=== PATIENT | male | born 1955 | race Caucasian/White ===

== ENCOUNTER 2024-02-16 12:35 | Outpatient (AMB) | payer BC, SELFPAY ==
[2024-02-16 12:57] VITALS: BMI 34.4
--- NOTE | 2024-02-16 12:57 | HO.SPINEOV ---
Vital Signs 02/16/24 12:57 Height 5 ft 10 in Weight 240 lb BMI 34.4 Intake Visit Reasons: low back pain, leg weakness and numbness Intake Note: Mr. Mae is here today c/o back pain with leg numbness and weakness. 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 This is a 68-year-old gentleman who is had progression of symptoms in his lower extremities including balance, numbness from his knees to his toes, diffuse weakness/fatigue of the lower extremities. There is a component of right-sided low back pain as well. The symptoms have been coming on for about 5 or 6 years but have gotten significantly worse over the last 6 months. He went through a host of different workups and it was concluded that he had lumbar stenosis as the source of his symptoms. He was offered surgery at [facility] by Dr. Palacios, with what sounds like a lumbar decompression. He wanted to get a 2nd opinion about possible minimally invasive options and was sent here for an evaluation. His symptoms have gotten to a point now where he is lost all ability to mobilize independently. He gets around his house with a walker but if he has to leave the house he has to use a wheelchair. This precipitous drop in function happened about 6 months ago. He reports that he also developed foot weakness about a year ago or so. He went through a extended course of conservative treatment including physical therapy, chiropractic as well as cortisone injections. He had been having lower back and they did an epidural that did seem to improve the back pain completely. However, it wore off after few weeks and now he has right back to where he was. He also underwent a neurological exam with an EMG and this showed that he he had suspicion for lumbar radiculopathy although other possible etiologies could not be excluded. The report suggests definitively that it is not a polyneuropathy. In terms of pain or discomfort down his legs he is not reporting any claudicating discomfort. PMH: History of hypertension, he was diagnosed what sounds like quite awhile ago with myasthenia gravis which presented with lid ptosis and that was treated any now is maintained on vyvgart infusions. Denies any other medical history Social hx: He does not smoke, drink using recreational drugs Medications: Losartan and Vyvgart Allergies: None Physical exam: Awake alert oriented no acute distress, he came in the office today in a wheelchair, he is unable to stand independently, I do have to give him assistance to get up to a vertical position. After standing for about 20 or 30 seconds he will noticeably get uncomfortable and has to sit back down. He does have tenderness over the right lower back area to palpation. He has diffuse loss of strength in his lower extremities, with 4-5 weakness in his iliopsoas bilaterally, full strength of quadriceps, 2/5 right dorsiflexion, 3/5 left dorsiflexion, 4-5 plantar flexion bilaterally. Absent reflexes throughout the upper and lower extremities. Motor exam in the upper extremities is normal. Sensation to light touch is normal. Imaging review: There is a lumbar MRI done at [place] in January 2023 showing advanced degenerative disc disease at L3-4 and L4-5 with moderate to severe stenosis at L3-4 with a left-sided disc herniation projecting out into the L3 foramen, and severe stenosis at L4-5. Impression: 68-year-old male who has developed slowly progressive neurological decline in his ability to walk and function which he describes as gait imbalance, lower extremity weakness and fatigue, numbness from his knees to his toes, difficulty emptying his bladder with urinary frequency, low back pain on the right side, who has stenosis at L3-4 and L4-5. It seems to be the worse at L4-5, but there is enough stenosis at L3-4 that it could be symptomatic as well. What is interesting is that this gentleman does not have any claudicating leg pains. That is usually 1 of the classic symptoms of stenosis. His main symptom is the feeling of diffuse weakness and the numbness from the knees to the toes. He had an EMG which seems to be pointing in the direction of a lumbar radiculopathy. It excluded a polyneuropathy. What is also unusual is that he took a significant decline over the last 6 months and has been in a wheelchair since that time. That is also somewhat unusual for stenosis as it is fairly predictable slow decline, not one that happens abruptly. Nonetheless, there is enough stenosis to be concerned, especially with an EMG suggesting lumbar origin. He has been offered surgery at [facility], and I will review his imaging with Dr. Panchal but my suspicion is he will also offer him a 2 level decompression. I would like to repeat the MRI, simply for the fact that the patient noticed a significant decline in his functional ability about 6 months ago so I would like to exclude that there is not something else going on, or that he has developed a problem at another location in the lumbar spine. I did admonished Mr. Mae that because of the weakness of the legs being present now for year more, there is a good chance that this is permanent and there would be no way to guarantee that surgery would correct the weakness. I would like to see him back after the MRI. Thank you for allowing us to care for your patient. The total time spent with this visit with this patient was 45 minutes reviewing history, physical exam, lumbar imaging review, and implementation of treatment plan or further diagnostic testing Fabian Panchal MD,PhD [facility] Orders: Orders MR lumbar spine wo con Today M48.061 - Spinal stenosis, lumbar region without neurogenic claudication Coding Level of Care Code New Pt Level 4 (41719) Diagnoses Lumbar stenosis M48.061
== END 2024-02-16 14:03 | disposition home or self-care (01) ==
LOC: HO.HNS 12:35
PROVIDERS: PCP Internal Medicine; Referring Provider Internal Medicine; Visit Provider Physician Assistant
DX: M48.061 Spinal stenosis, lumbar region without neurogenic claudication (principal)
CPT/HCPCS: 99204

== ENCOUNTER → 2024-02-16 12:35 | Outpatient (BNVA) | payer BC, SELFPAY | PROVIDERS: PCP Internal Medicine; Referring Provider Internal Medicine; Visit Provider Physician Assistant ==

== ENCOUNTER → 2024-04-18 13:25 | Outpatient (BNV) | payer BC, SELFPAY | PROVIDERS: PCP Internal Medicine; Visit Provider Radiology Diagnostic Radiology | DX: J98.6 Disorders of diaphragm (principal); D86.0 Sarcoidosis of lung | CPT/HCPCS: 71046 ==

== ENCOUNTER → 2024-04-18 13:39 | Outpatient (BNV) | payer BC, SELFPAY | PROVIDERS: PCP Internal Medicine; Visit Provider Internal Medicine | DX: I49.3 Ventricular premature depolarization (principal) | CPT/HCPCS: 93010 ==

== ENCOUNTER 2024-05-02 05:52 | Day surgery (SDC) | payer MEDICARE, SELFPAY ==
--- NOTE | 2024-04-18 | ECG_ITS ---
Test Reason : PRE OP Blood Pressure : */* mmHG Vent. Rate : 71 BPM Atrial Rate : 71 BPM P-R Int : 180 ms QRS Dur : 96 ms QT Int : 384 ms P-R-T Axes : 42 -14 63 degrees QTcB Int : 417 ms Sinus rhythm with occasional Premature ventricular complexes Otherwise normal ECG No previous ECGs available Referred By: Josefa Laura Electronically Signed By: DANIEL GEREN
[2024-04-18 12:26] VITALS: BP 170/83; PULSE 61; RESP 18; O2SAT 95; BMI 34.4
--- NOTE | 2024-04-18 12:53 | P.CONAN_ITS ---
Documented by User: Josefa Laura NP 04/19/24 12:47 HPI - Anesthesia Eval Consult details Narrative: 68yo M for Unilateral Approach for a Bilateral L3-4,L4-5 Lumbar Decompression, 05/02/24 No recent illness No CP/SOB with minimal activity. Uses walker at home but wheelchair for out of house Hx of difficult intubation with lung bx ~ 1997 - no info available from [facility] Myesthenia Gravis: Asymptomatic now. Follows [facility] neuro. Dx'd ~ 5 years ago. Vyvgart infusion PRN flare up, only use ~ 6 months ago. Previously on steroid, pyridostigmine (off all meds now) Pulmo Sarcoidosis: No tx post bx done ~ 20 years ago Diaphragmatic paralysis - dx'd ~ 10 years ago. Mild per [address] TOR: CPAP QHS Left eye prosthesis Case reviewed with Dr Bravo [facility] Active Problems Active Problems: All Active Problems Lumbar stenosis (Acute) Past Medical History Medical History History of eye prosthesis Arthritis Numbness SOB (shortness of breath) Severe obesity (BMI 35.0-39.9) with comorbidity Sarcoidosis Restrictive ventilatory defect Sleep apnea Morbid obesity Lumbar stenosis with neurogenic claudication Back pain Knee pain, right IFG (impaired fasting glucose) Kidney stones Diaphragmatic paralysis Anxiety Asthma Myasthenia gravis HTN (hypertension) Surgical History Surgical History History of back surgery H/O colonoscopy Hx of vasectomy History of lung biopsy Hx of eye surgery History of Problems with Anesthesia: Yes (Difficult intubation) Social History Social History Are you a primary healthcare prof to a significant other at home: Yes Do you presently have visiting nurse or other home services: Yes ([employer] once a week) Patient Tobacco Use Status: Former Tobacco user Use of substances other than those prescribed or required for medical reasons: Yes Substance Use Type Other:: gummies Substance Use Frequency: Daily Have you been hit, kicked, punched, or otherwise hurt by someone within the past year? If so, by whom?: No Are you DNR?: No Advance Directives: No Advance Directives Information Provided: Yes Advance Directives on File: No Recently lost weight without trying: No Eating poorly because of decreased appetite: No Nutrition Risks: No Nutritional Risk Poor oral hygiene: No Meds Allergies Allergy/AdvReac Type Severity Reaction Status Date / Time No Known Allergies Allergy Verified 05/02/24 07:05 Home Medications ?Medication ?Instructions ?Recorded ?Confirmed ?Last Taken ?Type dorzolamide 22.3 mg-timolol 6.8 1 drp ophthalmic-Right BID 04/17/24 04/17/24 Unknown History mg/mL eye drops efgartigimod austyn-fcab 20 mg/mL 400 mg IV ONCE PRN Outbreak 04/17/24 04/18/24 Unknown History intravenous solution (Vyvgart) losartan 100 mg tablet 100 mg PO DAILY 04/17/24 04/17/24 Unknown History naproxen sodium 220 mg tablet 220 mg PO Q12H PRN Pain 04/17/24 04/17/24 Unknown History (Aleve) Exam Height,Weight and Vital Signs: Height 5 ft 10 in Weight 108.862 kg Last Vital Signs Pulse 61 04/18/24 12:26 Resp 18 04/18/24 12:26 BP 170/83 H 04/18/24 12:26 Pulse Ox 95 04/18/24 12:26 O2 Del Method Room Air 04/18/24 12:26 Pertinent Lab Results Pertinent Lab Results: Lab Results 04/18/24 Range/Units 13:59 WBC 5.7 (4.8-10.8) X10*3/uL RBC 5.26 (4.60-5.80) X10*6/uL Hgb 16.2 (14.0-18.0) g/dl Hct 47.7 (42.0-52.0) % MCV 90.7 (80.0-98.0) fL MCH 30.8 (27.0-33.0) pg MCHC 34.0 (31.0-36.0) g/dl RDW 12.5 (11.0-16.0) % Plt Count 175 (160-400) X10*3/uL MPV 9.0 L (9.4-12.4) fL Absolute Nucleated RBC 0.000 (0.0-0.012) X10*3/uL Nucleated RBC % (auto) 0.0 (0.0-0.2) /100WBC Sodium 140 (135-145) mmol/L Potassium 3.9 (3.3-5.1) mmol/L Chloride 107 (96-108) mmol/L Carbon Dioxide 26 (22-29) mmol/L Anion Gap 11 L (12-20) BUN 18 H (9-16) mg/dL Creatinine 0.66 (0.5-1.4) mg/dL Estim Creat Clear Calc 130.5 Estimated GFR > 60 Random Glucose 99 (60-115) mg/dL Calcium 10.1 (8.4-10.2) mg/dL Narrative Narrative: EKG 04/2024 Vent. Rate : 71 BPM Atrial Rate : 71 BPM P-R Int : 180 ms QRS Dur : 96 ms QT Int : 384 ms P-R-T Axes : 42 -14 63 degrees QTcB Int : 417 ms Sinus rhythm with occasional Premature ventricular complexes Otherwise normal ECG No previous ECGs available XR chest 2V 04/2024 IMPRESSION: Elevation of the left hemidiaphragm with adjacent subsegmental atelectasis. Chest CT 2022 IMPRESSION: 1. No mediastinal mass is seen. 2. No acute findings in the chest. Lungs and pleura: Mild left hemidiaphragm elevation with adjacent atelectasis, unchanged from 2014. Scattered pulmonary nodules are noted bilaterally, similar in appearance to prior study in 2014. An index groundglass nodule in the left lower lobe (image 44 series 3) measures 0.4 cm, unchanged. Another index nodule in the left upper lobe (image 24 series 3), measuring 0.5 cm, unchanged. No definite new nodules. No effusion or pneumothorax. Airway Mallampati Class: II TM Dist: >3cm (Hx DI narrow ) Neck ROM: Full Loose/Missing/Broken Teeth: Yes (Molars extracted) Heart: RRR Lungs: CTA except LLL dim - ? diaphragm Assessment and Plan Assessment Anesthesia Assessment: Anesthesia Plan Discussed and PAT Visit Final Anesthetic Review History of Problems with Anesthesia: Yes (Difficult intubation) Documented by User: Loreto Ring MD 05/02/24 09:15 HPI - Anesthesia Eval Consult details Narrative: 68yo M for Unilateral Approach for a Bilateral L3-4,L4-5 Lumbar Decompression, 05/02/24 No recent illness No CP/SOB with minimal activity. Uses walker at home but wheelchair for out of house Hx of difficult intubation with lung bx ~ 1997 - no info available from [facility] Myesthenia Gravis: Asymptomatic now. Follows [facility] neuro. Dx'd ~ 5 years ago. Vyvgart infusion PRN flare up, only use ~ 6 months ago. Previously on steroid, pyridostigmine (off all meds now) Pulmo Sarcoidosis: No tx post bx done ~ 20 years ago Diaphragmatic paralysis - dx'd ~ 10 years ago. Mild per [address] TOR: CPAP QHS Left eye prosthesis Case reviewed with Dr Bravo Addendum: Patient with Progressive LE weakness now with difficulty walking. Diagnosed with myasthenia gravis about 4 years ago- ocular symptoms. Has not exercised since then. Before that was active. Initially treated with pyridostigmine. Most recently treated with Vyvgart infusion- 3 cycles with no improvement. Associated back pain. Patient also has lumbar stenosis but ?if some of LE weakness related to myasthenia gravis. Left hemidiaphragmatic paralysis ? cause ?relation to myasthenia gravis TOR. Uses CPAP machine- may also be related to myasthenia gravis H/o difficult intubation. Unsure of status of myasthenia gravis as no recent treatment. Patient reports no respiratory problems though admits to some breathing difficulty with laying fl at. Observation reveals ptosis of Right eyelid. Discussed possibility of difficulty with extubation and post-op ICU admission with Dr Panchal and patient. Patient understands anesthetic risks and wishes to proceed. [facility] Past Medical History Medical History History of eye prosthesis Arthritis Numbness SOB (shortness of breath) Severe obesity (BMI 35.0-39.9) with comorbidity Sarcoidosis Restrictive ventilatory defect Sleep apnea Morbid obesity Lumbar stenosis with neurogenic claudication Back pain Knee pain, right IFG (impaired fasting glucose) Kidney stones Diaphragmatic paralysis Anxiety Asthma Myasthenia gravis HTN (hypertension) Family History Family history of problems with anesthesia: No Surgical History Surgical History History of back surgery H/O colonoscopy Hx of vasectomy History of lung biopsy Hx of eye surgery History of Problems with Anesthesia: Yes (Difficult intubation about 20 years ago. Lung biopsy surgery. Received DI letter) Social History Social History Are you a primary healthcare prof to a significant other at home: Yes Do you presently have visiting nurse or other home services: Yes ([employer] once a week) Patient Tobacco Use Status: Former Tobacco user Use of substances other than those prescribed or required for medical reasons: Yes Substance Use Type Other:: gummies Substance Use Frequency: Daily Have you been hit, kicked, punched, or otherwise hurt by someone within the past year? If so, by whom?: No Are you DNR?: No Advance Directives: No Advance Directives Information Provided: Yes Advance Directives on File: No Recently lost weight without trying: No Eating poorly because of decreased appetite: No Nutrition Risks: No Nutritional Risk Poor oral hygiene: No Meds Allergies Allergy/AdvReac Type Severity Reaction Status Date / Time No Known Allergies Allergy Verified 05/02/24 07:05 Home Medications ?Medication ?Instructions ?Recorded ?Confirmed ?Last Taken ?Type dorzolamide 22.3 mg-timolol 6.8 1 drp ophthalmic-Right BID 04/17/24 04/17/24 Unknown History mg/mL eye drops efgartigimod austyn-fcab 20 mg/mL 400 mg IV ONCE PRN Outbreak 04/17/24 04/18/24 Unknown History intravenous solution (Vyvgart) losartan 100 mg tablet 100 mg PO DAILY 04/17/24 04/17/24 Unknown History naproxen sodium 220 mg tablet 220 mg PO Q12H PRN Pain 04/17/24 04/17/24 Unknown History (Aleve) Exam Height,Weight and Vital Signs: Height 5 ft 10 in Weight 108.862 kg Last Vital Signs Pulse 61 04/18/24 12:26 Resp 18 04/18/24 12:26 BP 170/83 H 04/18/24 12:26 Pulse Ox 95 04/18/24 12:26 O2 Del Method Room Air 04/18/24 12:26 Vital Signs Temp Pulse Resp BP Pulse Ox O2 Del Method 01/22/25 07:06 98.7 F 96 14 155/84 H 97 Room Air Airway Mallampati Class: III (Small mouth) TM Dist: >3cm Neck ROM: Full Loose/Missing/Broken Teeth: Yes (Extraction of wisdom teeth) Heart: RRR Lungs: CTAB. Diminished L>R Assessment and Plan Assessment Anesthesia Assessment: Anesthesia Plan Discussed, PAT Visit and Chart Reviewed Final Anesthetic Review Family History of Problems with Anesthesia: No History of Problems with Anesthesia: Yes (Difficult intubation about 20 years ago. Lung biopsy surgery. Received DI letter) NPO: Yes ASA Class: III Final Preanesthetic Review: No Changes in Pt Med Stat, Meds/Allgs Chart Reviewed, Consent Obtained/Reviewed and Anes Risks/Benef Reviewed Patient Risk: Intermediate Procedure Risk: Intermediate Assessment/Block/Sedation in SS: Assess/Block/Sedation-SS Anesthetic Plan Anesthetic Plan: GA Disposition: Standard PACU and Inp. Admit - ICU (If difficulty with extubation )
[2024-04-18 14:29] LABS: Hematocrit 47.7 % (42.0-52.0); Hemoglobin 16.2 g/dl (14.0-18.0); Mean Corpuscular Hemoglobin 30.8 pg (27.0-33.0); Mean Corpuscular Volume 90.7 fL (80.0-98.0); Platelet Count 175 X10*3/uL (160-400); Red Blood Count 5.26 X10*6/uL (4.60-5.80); Red Cell Distribution Width 12.5 % (11.0-16.0); White Blood Count 5.7 X10*3/uL (4.8-10.8)
[2024-04-18 14:50] LABS: Anion Gap 11 (12-20); Blood Urea Nitrogen 18 mg/dL (9-16); Calcium 10.1 mg/dL (8.4-10.2); Carbon Dioxide 26 mmol/L (22-29); Chloride 107 mmol/L (96-108); Creatinine Clr Calc Pharmacy 130.5; Estimated Glomerular Filt Rate > 60; Glucose Random 99 mg/dL (60-115); Potassium 3.9 mmol/L (3.3-5.1); Sodium 140 mmol/L (135-145)
[2024-05-02] VITALS (8 sets, daily range): BP systolic 140–162; BP diastolic 72–89; PULSE 70–96; RESP 14–20; TEMP 36.1–37.1; O2SAT 94–98; BMI 35.0
--- NOTE | ~2024-05-02 | FL_ITS ---
EXAMINATION: FL GUIDANCE ONLY HISTORY: bilateral l3-l5 decompression COMPARISON: Correlation is made with an outside MRI of the lumbar spine dated 03/03/2024. TECHNIQUE: Fluoroscopy time: 8 seconds. Cumulative Dose: 10.723 mGy. DAP: 3.860 uGy-m2 (microgray-meter squared). Images: 1. FINDINGS: A single fluoroscopic spot film of the lumbar spine in the lateral projection demonstrates a probe directed toward the L4 pedicle or posterior approach. FL/FL guidance in OR IMPRESSION: Fluoroscopy during procedure. Please see procedure report for additional information. Electronically signed by: Dallas Villalba MD 05/03/2024 08:23 AM JESSY
--- NOTE | ~2024-05-02 | XR_ITS ---
EXAMINATION: XR CHEST 2 VIEWS HISTORY: Diaphragm paralysis, Sarcoid COMPARISON: There are no prior studies for comparison. FINDINGS: PA and lateral views of the chest are submitted. There is elevation of the left hemidiaphragm with adjacent subsegmental atelectasis. The right lung is clear. There is no pleural effusion, pneumothorax, or pulmonary vascular congestion. The heart is normal in size. There is mild degenerative disc disease. XR/XR chest 2V IMPRESSION: Elevation of the left hemidiaphragm with adjacent subsegmental atelectasis. Electronically signed by: Dallas Villalba MD 04/18/2024 02:51 PM EST
--- OUTSIDE RECORDS SUMMARY | 2024-05-02 05:55 | XMS_ITS | Clinical Summary ---
Author Organization [employer] [facility] lin Address [address] [place] [address] Care Team Providers Care Pci Security Consultant Name Role Phone Alexis Chris MD Primary Care Provider [phone] Allergies No known active allergies Medications hydroCHLOROthia zide (HYDRODIURIL) 25 MG tablet 8 Active losartan-hydroc hlorothiazide (HYZAAR) 50-12.5 mg tablet Take 1 tablet by mouth 3 Active azaTHIOprine (IMURAN) 50 mg tablet Take 150 mg by mouth 3 Active pyridostigmine (MESTINON) 60 mg tablet Take 1 tablet by mouth Pt takes 2 tab 120mg in the morning. 2 Active predniSONE (DELTASONE) 10 MG tablet Take 20 mg by mouth daily Pt is on 20mg daily until further instruction from provider. 3 Active Active Problems No known active problems Social History Tobacco Use Types Packs/Day Years Used Date Smoking Tobacco: Never Smokeless Tobacco: Never Tobacco Cessation:Counseling Given: Not Answered Sex and Gender Information Value Date Recorded Sex Assigned at Not on file Legal Sex Male 4:26 PM EDT Gender Identity Not on file Sexual Orientation Not on file Last Filed Vital Signs Vital Sign Reading Time Taken Comments Blood Pressure 98/48 12/15/2022 1:15 PM EDT Pulse 77 12/15/2022 1:15 PM EDT Temperature 36.7 ??C (98 ??F) 12/15/2022 1:15 PM EDT Respiratory Rate 16 12/15/2022 1:15 PM EDT Oxygen Saturation 97% 07/26/2017 4:39 PM EDT Inhaled Oxygen Concentration - - Weight 102 kg (225 lb) 12/15/2022 12:15 PM EDT Height 177.8 cm (5' 10 ) 10/27/2022 1:36 PM PDT Body Mass Index 32.28 10/27/2022 1:36 PM PDT Plan of Treatment Health Maintenance Due Date Last Done Comments Colorectal Cancer: COLONOSCO PY Screening every 10 yrs (or Modifier) 1954 Depression: Screening Annual ly using PHQ-2/9 in Adults 18 yrs or above (or HM Modifier)([facility]) 1972 Hepatitis C Virus Infection in Adolescents and Adults: Screening (or Modifier) ([facility]) 1972 [facility] Screening Reminder: Lina alonzo for all adults ([facility]) 1972 Tobacco Smoking Cessation: i n Adults excluding Women: Behavioral and Pharmacotherapy Interventions ([facility]) 1972 Lipid Screening: Every 5 yrs for Men aged 35+ (or HM Modifier) ([facility]) 1990 Colorectal Cancer Screening 45 -75 Yrs (or HM Modifier) 12/09/1999 Colorectal Cancer: FLEXIBLE SIGMOIDOSCOPY Screening every 5 yrs 12/09/1999 Colorectal Cancer: Fecal Imm unochemical Test (FIT) Annually [facility] 12/09/1999 Colorectal Cancer: High-sens itivity gFOBT Screening Annually [facility] 12/09/1999 Colorectal Cancer: Stool Col oguard Screening every 3 yrs 12/09/1999 Colorectal Cancer:CT Colonog tiera Screening every 5 yrs 12/09/1999 Zoster/Shingles Vaccine Seri es Screening: Adults aged 18+ yrs (or HM Modifiers)([facility]) (1 of 2) 2004 RSV Vaccines (1 - 1-dose 60+ series) 2014 Pneumococcal Vaccination Scr eening: Patients 65+ yrs of age ([facility]) (2 of 2 - PCV) 12/09/2019 09/04/2013 DTaP/Tdap/Td Vaccines ([facility]) (2 - Td or Tdap) 4 09/04/2013 Flu Vaccination: Ages 65+: Y early High Dose Recommended (or Modifier)([facility]) 11/10/2023 COVID-19 Vaccine Screening: Initial Series and Booster Status ([facility]) ( season) 2023 Medical Devices Not on file Insurance [facility] BCBS - MEDICARE Care Teams Pci Security Consultant Relationship Specialty Start Date End Date Alexis Chris MD [address] [place] [id number] PCP - [employer] Operator 07/26/17
[2024-05-02] MEDS: Gabapentin 300 MG CAPSULE PO (06:54)
[2024-05-02] MEDS: methocarbamoL 750 MG TABLET PO (06:54)
--- NOTE | 2024-05-02 07:00 | MHC.SHP ---
Pre-Procedural Eval Section A - 24 Hr Update-Section A only Date of Service: 05/02/24 Section B - Complete if H&P > 30 days Chief Complaint: Spinal stenosis, lumbar region without neurogenic Allergies: Allergies Allergy/AdvReac Type Severity Reaction Status Date / Time No Known Allergies Allergy Verified 02/16/24 12:59 Review of Systems Sugical H&P ROS: Negative: Constitution, Cardiovascular, Respiratory, Neurological, Psychiatric, Hem-Onc, Allergic/Immunologic, Gastrointestinal, Genitourinary, Musculoskeletal, Integumentary, Endocrine and Eyes/Ears/Nose/Throat Exam Surgical H&P Exam: Not Evaluated: HEENT, Not Evaluated: Heart, Not Evaluated: Lungs, Not Evaluated: Extremities, Not Evaluated: Abdomen, Not Evaluated: Skin and Not Evaluated: Neurological Exam Comment: The patient is awake, alert and in no acute distress. Proposed surgical incision site is clean, dry, no evidence of recent trauma or surgery. Plan Diagnosis/Plan: Unchanged I have reviewed the history and physical and performed a pertinent physical examination on my patient. No changes have occurred unless specified. Plan remains the same, L3-4, L4-5 Bilateral decompression, unilateral approach, left. Time Spent With Patient Time: Total time managing care of this patient today _15___ minutes.
[2024-05-02] MEDS: Lactated Ringers 1,000 ML 100 ML IVCONT (07:09)
--- NOTE | 2024-05-02 10:15 | P.OP_ITS ---
Operative Note Operative Note Date of Service: 05/02/24 Narrative: Preoperative Diagnosis: L3-4, L4-5 spinal stenosis/lateral recess stenosis/neural foraminal stenosis Operation: L3-4, L4-5 Laminotomy, Partial facetectomy and foraminotomy with use of microscope Consent Informed Consent was obtained for this operation. I have explained the nature, purpose and benefits of the operation. I have discussed the risks and benefit of the operation including possible complications or adverse events with patient/family. Alternative(s) were discussed with the patient with their relative benefits and risks as well as the consequences of not accepting the operation were included in obtaining consent. Surgeon: CASPER DENNEY MD, PHD Procedure Assisted By: KEN Beckett Description of Procedure This 68-year-old male is suffering from neurogenic claudication due to severe L3-4 and L4-5 central spinal stenosis. The patient was offered a decompression. The procedure complications were explained. The patient was consented. The patient was brought to the operating room and endotracheally intubated. The patient was turned in prone position on the Javier frame. Prep and drape was done followed by timeout. The Physician bankruptcy assistant provided access. A mid lumbar incision was made followed by release of the paravertebral muscle on the left side to expose the L3-4 and L4-5 lamina and facet joints. An intraoperative x- ray was obtained to confirm the correct level. The microscope was brought in. I took over the procedure. The high-speed drill was used to do a left L3-4 laminotomy until flavum ligament was reached. A #2 Kerrison was used to expand the laminotomy near flush to the pedicles and to include a partial facetectomy. The flavum ligament was opened and resected with a #3 Kerrison to decompress the underlying thecal sac. The flavum ligament was removed to decompress the lateral recess and the exiting L4 nerve roots. The patient was turned contralaterally. The spinous process was undercut and in this way I was able to reach contralateral side and decompress this side with a 2. And 3 Kerrison. A long nerve hook could be easily passed along the medial side of the pedicles as a sign of adequate decompression. Then attention was turned to the L4-5 level were similar procedure was done. Again significant flavum hypertrophy was encountered causing severe spinal stenosis. A left L4-5 laminotomy was done followed by removal of the flavum ligament. A medial facetectomy was done in order to get maximum access to the thecal sac and exiting nerve roots. The spinous processes undercut and the contralateral side was decompressed as well. The microscope was removed. Hemostasis was done. The physician bankruptcy assistant close the Incision in 2 layers. Steri-Strips were used to approximate incision. An OpSite with Tegaderm was used to cover the incision. All sponge needle counts were correct. Patient was extubated and transported in stable is to recovery room. Anesthesia: General Estimated Blood Loss (ml): 250 Complications: None Duration of Surgery: 2 hours Postoperative Plan: Discharge to home
--- NOTE | 2024-05-02 10:15 | P.DS_ITS ---
DS: Providers Provider Date of Service: 05/02/24 Date of discharge: 05/02/24 Primary care physician: Alexis Chris MD DS: Summary Time Attestation Discharge Coordination Time (in mins): 15 Quality: Safe Use of Opioids Does Pt have an Active Cancer Diagnosis on the Problem List?: No Quality: Stroke Does the patient have a stroke diagnosis?: No Physical Exam Vital Signs: Vital Signs: Last Vital Signs Temp 98.7 F 05/02/24 07:06 Pulse 96 05/02/24 07:06 Resp 14 05/02/24 07:06 BP 155/84 H 05/02/24 07:06 Pulse Ox 97 05/02/24 07:06 O2 Del Method Room Air 05/02/24 07:06 BMI result Body Mass Index 35.0 Discharge Plan Discharge Patient Disposition: Home, Self-Care Referrals: Alexis Chris MD [Primary Care Provider] - 1 Week Discharge Medications: New oxycodone 5 mg tablet 5 mg PO Q6H PRN (Reason: severe pain (scale score 7-10)) Qty: 30 0RF Rx Instructions: Partial Fill upon patient request. Continued losartan 100 mg tablet 100 mg PO DAILY Vyvgart 20 mg/mL Solution 400 mg IV ONCE PRN (Reason: Outbreak) dorzolamide-timolol 22.3-6.8 mg/mL drops 1 drp ophthalmic-Right BID Held naproxen sodium [Aleve] 220 mg Tablet 220 mg PO Q12H PRN (Reason: Pain) Hold Instructions: Resume on 05/03/24. Discharge Orders: Discharge Order (Routine); Ordered 05/02/24 Ordered By: Samir Amador Diet: Advance to usual diet Activity on Discharge: As tolerated Activity Restrictions/Additional Instructions: After your spinal surgery we ask you to observe the following restrictions/guidelines: Activity: It is normal to feel some discomfort as you increase your activity, but that will improve with time. We ask you avoid heavy lifting or acitivities that cause pain. As a general rule, 8lbs is a safe limit for lifting right after surgery. Walk as much as you feel comfortable but not to exhaustion. You will feel extra tired the first few days after surgery. Stay well hydrated. It is OK to walk up and down stairs You may return to driving when you are off narcotics (such as vicodin, oxycodone, dilaudid, etc), and you are back to normal functional capacity. If you have any concerns please check with office before driving. Return to work is specific to each patient and each surgery, so please speak with your doctor/PA at first follow up. Please bring paperwork such as FMLA at that time if you need it filled out. Medications: We recommend you take 1,000mg Tylenol every 8 hours for the first few weeks after surgery, if you do not have any liver issues and can tolerate this medication. Do not exceed 4,000mg daily. We will give you a short supply of narcotics after surgery (usually one weeks worth). If you need more please call the office but do not use more than prescribed. You will need to give our office 48 hours notice if you need narcotics refilled and we do not fill narcotics on weekends or evenings. If you are on a narcotic, it is a good idea to take a stool softener such as colace or senna to avoid constipation If you take blood thinner such as aspirin, Plavix, Coumadin, Effient, Eliquis etc for conditions such as Afib, DVT, Pulmonary embolus, coronary disease, stents etc please speak with your surgeon about specific details as to when you can resume these medications. You can resume NSAIDs on post op day 1 (eg: Motrin, Naproxen, etc). Follow up: Please call the office, , after surgery to arrange a 3 week follow up for wound check. Wound Care: You may remove your dressing on the first day after surgery. ?You may ?leave open to air. Please do not remove the steri strips underneath. they will fall off on their own in one week. IT IS NORMAL FOR THE WOUND TO OOZE OR BE BLOODY FOR A FEW DAYS AFTER SURGERY. ?IF THIS HAPPENS JUST PLACE NEW DRESSING OVER IT TO AVOID STAINING CLOTHES. You may shower on post op day # 1 We ask that you do not let the water soak the wound. If it does get wet, just towel dry lightly. Please do not scrub your incision or place any type of chemical/ointment on the wound. No tub baths, pools or jacuzzis for one month. If you have any leaking or redness from your wound, or fevers, please call the office. Print Language: Tamazight
== END 2024-05-02 12:46 | disposition home or self-care (01) ==
PROVIDERS: Nurse Practitioner; PCP Internal Medicine; Visit Provider Neurological Surgery
PROC: (CPT 63047; principal; 2024-05-02 07:30)
DX: M48.062 Spinal stenosis, lumbar region with neurogenic claudication (principal); M54.50 Low back pain, unspecified; R20.0 Anesthesia of skin; R53.1 Weakness; I10 Essential (primary) hypertension; G70.00 Myasthenia gravis without (acute) exacerbation; Z79.899 Other long term (current) drug therapy; Z99.89 Dependence on other enabling machines and devices; Z98.890 Other specified postprocedural states; Z87.891 Personal history of nicotine dependence
CPT/HCPCS: 63047; 63048; 36415; 80048; 85027; 93005; J0131; J0330; J0690; J1100; J1885; J2003; J2250; J2405; J2704; J3010

== ENCOUNTER → 2024-05-02 05:52 | Outpatient (BNV) | payer MEDICARE, SELFPAY | PROVIDERS: PCP Internal Medicine; Visit Provider Physician Assistant | DX: M48.062 Spinal stenosis, lumbar region with neurogenic claudication (principal) | CPT/HCPCS: 63047; 63048; 99499 ==

== ENCOUNTER 2024-05-23 14:03 | Outpatient (AMB) | payer MEDICARE, SELFPAY ==
--- NOTE | 2024-05-23 14:41 | HO.SPINEOV ---
Intake Visit Reasons: 1st post op Intake Note: Mr. Mae is here today for his 1st post op. Manufacturing Director Required: No Allergies No Known Allergies Allergy (Verified 05/02/24 07:05) Assessment & Plan Assessment & Plan (1) Lumbar stenosis: Code(s): M48.061 - Spinal stenosis, lumbar region without neurogenic claudication Category: Medical Plan Operation: L3-4, L4-5 Laminotomy, Partial facetectomy and foraminotomy Jared comes in today for his 1st postoperative visit. To recap he was initially evaluated in clinic for symptoms of neurogenic claudication including pain in his right knee and difficulties with ambulation. He reports he is very satisfied with the surgery and feels much better than he did pre-operatively. The patient reports he is up walking around with the assistance of a walker, which is a considerable improvement given he was in a wheelchair at his initial appointment. He is also completing the majority of his ADLs. He reports that he no longer suffers from his right leg pain, and has been ambulating well since surgery. No new neurological deficits. Patient is able to ambulate well, rises from a seated position without difficulty. Incision sites are closed, well healing, with no signs of drainage. We will follow-up with the patient in 6 weeks for their 2nd postoperative visit. Samir Panchal MD,PhD [facility] Coding Level of Care Code Global (30097) Diagnoses Lumbar stenosis M48.061
--- OUTSIDE RECORDS SUMMARY | 2024-05-23 15:27 | XMS_ITS | Clinical Summary ---
Author Organization [facility] Address [address] [place] [address] Care Team Providers Care Project Control Manager Name Role Phone Unavailable Primary Care Provider Unavailabl e Social History Tobacco Use Types Packs/Day Years Used Date Smoking Tobacco: Never Assessed Sex and Gender Information Value Date Recorded Sex Assigned at Not on file Legal Sex Male 5:50 PM EDT Gender Identity Not on file Sexual Orientation Not on file Plan of Treatment Health Maintenance Due Date Last Done Comments Hepatitis C Screening 1955 DTaP/Tdap/Td (1 - Tdap) 1972 Pneumococcal 50+ years (1 of 1 - PCV) 2004 Zoster (Shingrix) (1 of 2) 2004 COVID-19 Vaccine ( - 2023-2 5 season) 2023 Influenza (#1) 2023 RSV (1 - 1-dose 75+ series) 2029 Abdominal Aorta Imaging Discontinued HPV Vaccine Aged Out No longer eligi ble based on patient's age to complete this topic Hep A Aged Out No longer eligi ble based on patient's age to complete this topic Hep B Aged Out No longer eligi ble based on patient's age to complete this topic Hib Aged Out No longer eligi ble based on patient's age to complete this topic Meningococcal ACWY Aged Out No longer eligible based on patient's age to complete this topic Zoster (Zostavax) Discontinued
--- OUTSIDE RECORDS SUMMARY | 2024-05-23 15:27 | XMS_ITS | Clinical Summary ---
Author Organization [employer] [facility] [employer] Address [address] [place] [address] Care Team Providers Care Entry Level Assistant Manager Name Role Phone Alexis Chris MD Primary Care Provider Allergies No known active allergies Medications hydroCHLOROthia [...] Adults 18 yrs or above (or HM Modifier)([facility]) 1972 Hepatitis C Virus Infection in Adolescents and Adults: Screening (or Modifier) ([facility]) 1972 [facility] Screening Reminder: Lina alonzo for all adults ([facility]) 1972 Tobacco Smoking Cessation: i n Adults excluding Women: Behavioral and Pharmacotherapy Interventions ([facility]) 1972 Lipid Screening: Every 5 yrs for Men aged 35+ (or HM Modifier) ([facility]) 1990 Colorectal Cancer Screening 45 -75 Yrs (or HM Modifier) 12/09/1999 Colorectal Cancer: FLEXIBLE SIGMOIDOSCOPY Screening every 5 yrs 12/09/1999 Colorectal Cancer: Fecal Imm unochemical Test (FIT) Annually [facility] 12/09/1999 Colorectal Cancer: High-sens itivity gFOBT Screening Annually [facility] 12/09/1999 Colorectal Cancer: Stool Col oguard Screening every 3 yrs 12/09/1999 Colorectal Cancer:CT Colonog tiera Screening every 5 yrs 12/09/1999 Zoster/Shingles Vaccine Seri es Screening: Adults aged 18+ yrs (or HM Modifiers)([facility]) (1 of 2) 2004 Pneumococcal Vaccination Scr eening: Patients 65+ yrs of age ([facility]) (2 of 2 - PCV) 12/09/2019 09/04/2013 DTaP/Tdap/Td Vaccines ([facility]) (2 - Td or Tdap) 4 09/04/2013 Flu Vaccination: Ages 65+: Y early High Dose Recommended (or Modifier)([facility]) 11/10/2023 COVID-19 Vaccine Screening: Initial Series and Booster Status ([facility]) ( - 2023- season) 2023 RSV Vaccines (1 - 1-dose 75+ series) 2029 Medical Devices Not on file Insurance [facility] BCBS - MEDICARE Care Teams Entry Level Assistant Manager Relationship Specialty Start Date End Date Alexis Chris MD [address] [place] [phone] PCP - Ap Operator 07/26/17
== END 2024-05-23 15:04 | disposition home or self-care (01) ==
PROVIDERS: PCP Internal Medicine; Visit Provider Physician Assistant
DX: M48.061 Spinal stenosis, lumbar region without neurogenic claudication (principal)
CPT/HCPCS: 99024

== ENCOUNTER → 2024-05-23 14:03 | Outpatient (BNVA) | payer MEDICARE, SELFPAY | PROVIDERS: PCP Internal Medicine; Visit Provider Physician Assistant | DX: Z47.89 Encounter for other orthopedic aftercare (principal); M48.061 Spinal stenosis, lumbar region without neurogenic claudication | CPT/HCPCS: 99212 ==

== ENCOUNTER 2024-06-21 13:25 | Outpatient (AMB) | payer MEDICARE, SELFPAY ==
--- NOTE | 2024-06-21 13:26 | HO.SPINEOV ---
Intake Visit Reasons: severe back pain Intake Note: Mr. Mae is here today c/o severe low back pain. Equities Analyst Required: No Allergies No Known Allergies Allergy (Verified 05/02/24 07:05) Assessment & Plan Assessment & Plan (1) Lumbar stenosis: Code(s): M48.061 - Spinal stenosis, lumbar region without neurogenic claudication Category: Medical Plan Mr Mae is about 2 months out from his L3-4, L4-5 decompression. He has seen some improvement in the leg symptoms that he was having before surgery, but unfortunately he has developed increased frequency of centralized low back pain after the surgery. Initially just thought it was incisional pain so we hoped it would go away. He now reports that it is more constant than ever. He localizes it just below the incision radiating down into the sacrum area. In terms of his overall leg function, he remains with a footdrop and that is unchanged. On my exam today it is still a 3/5 in the right foot. His wound is healed up nicely. I went back and looked at his previous MRIs that had been loaded into our system and these show that he has severe degenerative disc disease throughout most of his lumbar spine. There are Modic endplate changes and Schmorl's nodes. I am going to get a postoperative MRI to evaluate for postoperative anatomical changes that may explain his back pain. He did have a slight spondylolisthesis at L4-5 preoperatively so I think we should assess this with MRI. If the MRI shows that it is worsening, I will get standing flexion-extension x-rays. He would like the MRI done at [place], and I can call him with the results. Fabian Panchal MD, PhD [facility] Orders: Orders MR lumbar spine wo/w con Today M48.061 - Spinal stenosis, lumbar region without neurogenic claudication Coding Level of Care Code Global (23273) Diagnoses Lumbar stenosis M48.061
--- OUTSIDE RECORDS SUMMARY | 2024-06-21 17:00 | XMS_ITS | Clinical Summary ---
Author Organization [facility] Address [address] [place] [address] Care Team Providers Care Mcat Instructor Name Role Phone Unavailable Primary Care Provider [...]
--- OUTSIDE RECORDS SUMMARY | 2024-06-21 17:00 | XMS_ITS | Clinical Summary ---
Author Organization [employer] [facility] [employer] Address [address] [place] [address] Care Team Providers Care Review Manager Name Role Phone Alexis Chris MD Primary Care Provider [phone] Allergies No known active allergies Medications hydroCHLOROthia [...] Adults 18 yrs or above (or HM Modifier)([facility]) 1972 Hepatitis C Virus Infection in Adolescents and Adults: Screening (or Modifier) ([facility]) 1972 [facility] Screening Reminder: Lina alonzo for all adults ([facility]) 1972 Tobacco Smoking Cessation: i n Adults excluding Women: Behavioral and Pharmacotherapy Interventions ([facility]) 1972 Lipid Screening: Every 5 yrs for Men aged 35+ (or HM Modifier) ([facility]) 1990 Colorectal Cancer Screening 45 -75 Yrs (or HM Modifier) 12/09/1999 Colorectal Cancer: FLEXIBLE SIGMOIDOSCOPY Screening every 5 yrs 12/09/1999 Colorectal Cancer: Fecal Imm unochemical Test (FIT) Annually [facility] 12/09/1999 Colorectal Cancer: High-sens itivity gFOBT Screening Annually [facility] 12/09/1999 Colorectal Cancer: Stool Col oguard Screening every 3 yrs 12/09/1999 Colorectal Cancer:CT Colonog tiera Screening every 5 yrs 12/09/1999 Zoster/Shingles Vaccine Seri es Screening: Adults aged 18+ yrs (or HM Modifiers)([facility]) (1 of 2) 2004 Pneumococcal Vaccination Scr eening: Patients 65+ yrs of age ([facility]) (2 of 2 - PCV) 09/04/2014 09/04/2013 DTaP/Tdap/Td Vaccines ([facility]) (2 - Td or Tdap) 09/04/2013 Flu Vaccination: Ages 65+: Y early High Dose Recommended (or Modifier)([facility]) 11/10/2023 COVID-19 Vaccine Screening: Initial Series and Booster Status ([facility]) ( - 2023- season) 2023 RSV Vaccines (1 - 1-dose 75+ series) 2029 Medical Devices Not on file Insurance [facility] BCBS - MEDICARE Care Teams Review Manager Relationship Specialty Start Date End Date Alexis Chris MD [address] [place] [phone] PCP - Journeyman Meat Cutter 07/26/17
== END 2024-06-21 13:58 | disposition home or self-care (01) ==
LOC: HO.HNS 13:25
PROVIDERS: PCP Internal Medicine; Visit Provider Physician Assistant
DX: M48.061 Spinal stenosis, lumbar region without neurogenic claudication (principal)
CPT/HCPCS: 99024

== ENCOUNTER 2024-06-21 13:25 | Outpatient (REF) | payer MEDICARE, SELFPAY ==
--- OUTSIDE RECORDS SUMMARY | 2024-06-21 18:44 | XMS_ITS | Clinical Summary ---
Author Organization [facility] Address [address] [place] [address] Care Team Providers Care Delivery Driver/Customer Service Name Role Phone Unavailable Primary Care Provider [...]
--- OUTSIDE RECORDS SUMMARY | 2024-06-21 18:44 | XMS_ITS | Clinical Summary ---
Author Organization [employer] [facility] [employer] Address [address] [place] [address] Care Team Providers Care Licensed [place] Real Estate Appraiser Name Role Phone Alexis Chris MD Primary Care Provider [phone] Allergies No known active allergies Medications hydroCHLOROthia [...] Adults 18 yrs or above (or HM Modifier)([facility]) 1972 Hepatitis C Virus Infection in Adolescents and Adults: Screening (or Modifier) ([facility]) 1972 [facility] Screening Reminder: Lina alonzo for all adults ([facility]) 1972 Tobacco Smoking Cessation: i n Adults excluding Women: Behavioral and Pharmacotherapy Interventions ([facility]) 1972 Lipid Screening: Every 5 yrs for Men aged 35+ (or HM Modifier) ([facility]) 1990 Colorectal Cancer Screening 45 -75 Yrs (or HM Modifier) 12/09/1999 Colorectal Cancer: FLEXIBLE SIGMOIDOSCOPY Screening every 5 yrs 12/09/1999 Colorectal Cancer: Fecal Imm unochemical Test (FIT) Annually [facility] 12/09/1999 Colorectal Cancer: High-sens itivity gFOBT Screening Annually [facility] 12/09/1999 Colorectal Cancer: Stool Col oguard Screening every 3 yrs 12/09/1999 Colorectal Cancer:CT Colonog tiera Screening every 5 yrs 12/09/1999 Zoster/Shingles Vaccine Seri es Screening: Adults aged 18+ yrs (or HM Modifiers)([facility]) (1 of 2) 2004 Pneumococcal Vaccination Scr eening: Patients 65+ yrs of age ([facility]) (2 of 2 - PCV) 09/04/2014 09/04/2013 DTaP/Tdap/Td Vaccines ([facility]) (2 - Td or Tdap) 09/04/2013 Flu Vaccination: Ages 65+: Y early High Dose Recommended (or Modifier)([facility]) 11/10/2023 COVID-19 Vaccine Screening: Initial Series and Booster Status ([facility]) ( - 2023- season) 2023 RSV Vaccines (1 - 1-dose 75+ series) 2029 Medical Devices Not on file Insurance [facility] BCBS - MEDICARE Care Teams Licensed Mass Real Estate Appraiser Relationship Specialty Start Date End Date Alexis Chris MD [address] [place] [phone] PCP - Batt Machine Operator 07/26/17
== END 2024-06-21 13:26 | disposition home or self-care (01) ==
LOC: HO.HOSX 13:25
PROVIDERS: PCP Internal Medicine; Visit Provider Physician Assistant
DX: M48.061 Spinal stenosis, lumbar region without neurogenic claudication (principal); Z98.890 Other specified postprocedural states
CPT/HCPCS: 99212

== ENCOUNTER 2024-06-27 14:38 | Outpatient (REF) | payer MEDICARE, SELFPAY ==
--- NOTE | ~2024-06-27 | XR_ITS ---
EXAMINATION: X-RAY LUMBAR SPINE 4 VIEWS. CLINICAL INFORMATION: Spinal stenosis, lumbar region without neurogenic claudication. TECHNIQUE: 4 views of the lumbar spine. COMPARISON: None FINDINGS: Multilevel marginal C5 formation and endplate sclerosis decreased intervertebral disc height and syndesmophyte formation throughout the included lower thoracic and lumbar spine. Dextroconvex curvature of the lumbar spine apex at L3-4. There is a 30% wedge-shaped compression deformity likely old at L1. There is a grade 1 anterolisthesis at L4-5. No lytic or blastic lesions. XR/XR lumbar spine 4V min IMPRESSION: Multilevel thoracolumbar spondylosis with a dextroconvex scoliosis apex at L3-4 and a grade 1 anterolisthesis L4-5. Probable osteoporotic old compression deformity at L1. Electronically signed by: Bart Moore MD 06/28/2024 08:41 AM EDT
--- OUTSIDE RECORDS SUMMARY | 2024-06-27 16:52 | XMS_ITS | Clinical Summary ---
Author Organization [employer] [facility] [employer] Address [address] [place] [address] Care Team Providers Care Household Personal Assistant Name Role Phone Alexis Chris MD Primary [...] Adults 18 yrs or above (or HM Modifier)([facility]) 1972 Hepatitis C Virus Infection in Adolescents and Adults: Screening (or Modifier) ([facility]) 1972 [facility] Screening Reminder: Lina alonzo for all adults ([facility]) 1972 Tobacco Smoking Cessation: i n Adults excluding Women: Behavioral and Pharmacotherapy Interventions ([facility]) 1972 Lipid Screening: Every 5 yrs for Men aged 35+ (or HM Modifier) ([facility]) 1990 Colorectal Cancer Screening 45 -75 Yrs (or HM Modifier) 12/09/1999 Colorectal Cancer: FLEXIBLE SIGMOIDOSCOPY Screening every 5 yrs 12/09/1999 Colorectal Cancer: Fecal Imm unochemical Test (FIT) Annually [facility] 12/09/1999 Colorectal Cancer: High-sens itivity gFOBT Screening Annually [facility] 12/09/1999 Colorectal Cancer: Stool Col oguard Screening every 3 yrs 12/09/1999 Colorectal Cancer:CT Colonog tiera Screening every 5 yrs 12/09/1999 Zoster/Shingles Vaccine Seri es Screening: Adults aged 18+ yrs (or HM Modifiers)([facility]) (1 of 2) 2004 Pneumococcal Vaccination Scr eening: Patients 65+ yrs of age ([facility]) (2 of 2 - PCV) 09/04/2014 09/04/2013 DTaP/Tdap/Td Vaccines ([facility]) (2 - Td or Tdap) 09/04/2013 Flu Vaccination: Ages 65+: Y early High Dose Recommended (or Modifier)([facility]) 11/10/2023 COVID-19 Vaccine Screening: Initial Series and Booster Status ([facility]) ( - 2023- season) 2023 RSV Vaccines (1 - 1-dose 75+ series) 2029 [employer] Devices Not on file Insurance [facility] BCBS - MEDICARE Care Teams Household Personal Assistant Relationship Specialty Start Date End Date Alexis Chris MD [address] [place] [phone] PCP - Preform Machine Operator 07/26/17
--- OUTSIDE RECORDS SUMMARY | 2024-06-27 16:52 | XMS_ITS | Clinical Summary ---
Author Organization [facility] Address [address] [place] [address] Care Team Providers Care Unemployment Benefits Claims Taker Name Role Phone Unavailable Primary Care Provider [...]
== END 2024-06-27 14:39 | disposition home or self-care (01) ==
LOC: HO.XRAY 14:38
PROVIDERS: PCP Internal Medicine; Visit Provider Physician Assistant
DX: M48.061 Spinal stenosis, lumbar region without neurogenic claudication (principal)
CPT/HCPCS: 72110

== ENCOUNTER → 2024-06-27 14:42 | Outpatient (BNV) | payer MEDICARE, SELFPAY | PROVIDERS: PCP Internal Medicine; Visit Provider Radiology Diagnostic Radiology | DX: M47.815 Spondylosis without myelopathy or radiculopathy, thoracolumbar region (principal) | CPT/HCPCS: 72110 ==

== ENCOUNTER 2024-07-13 11:30 | Outpatient (AMB) | payer MEDICARE, SELFPAY ==
--- NOTE | 2024-07-13 11:57 | A.SPINEOV_ITS ---
Intake Visit Reasons: MRI f/u Intake Note: Mr. Mae is here to F/u on the results to his MRI. 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 He has centralized low back pain near where the incision is. We did a new MRI at [place] just to evaluate for any potential postoperative issues. All I can see is that he still continues to have persistent degenerative disc disease at multiple levels of the lumbar spine. There is a small postoperative seroma but does not look infected. He has no fevers in his wound is healed up beautifully. No instability on flexion or extension on his xray. The original problem he came here for which was lumbar stenosis has been fixed. I do not see any recurrent stenosis on his MRI. I explained to him that the back pain he is feeling can be a complicated think figure out especially in light of his multilevel degenerative disc disease and that right now I think given that he has only a few months out from surgery we should just give this some time. He is going to be working with the physical therapy team and hopefully this will help. I would be happy to see him back down the road if things do not change. Fabian Panchal MD, PhD [facility] Coding Level of Care Code Global (86977) Diagnoses Lumbar stenosis M48.061
--- OUTSIDE RECORDS SUMMARY | 2024-07-13 13:29 | XMS_ITS | Clinical Summary ---
Author Organization [facility] Address [address] [place] [address] Care Team Providers Care Food Checker Name Role Phone Unavailable Primary Care Provider [...]
--- OUTSIDE RECORDS SUMMARY | 2024-07-13 13:29 | XMS_ITS | Clinical Summary ---
Author Organization [facility] Address [address] [place] [address] Care Team Providers Care Devulcanizer Operator Name Role Phone Alexis Chris MD Primary Care Provider [phone] Allergies No known active allergies Medications hydroCHLOROthia [...] Screening (or Modifier) ([facility]) [address] [facility] Screening Reminder: Lina alonzo for all [...] Cancer: Fecal Imm unochemical Test (FIT) Annually [facility] 12/09/1999 Colorectal Cancer: High-sens itivity gFOBT Screening Annually [facility] 12/09/1999 Colorectal Cancer: Stool Col oguard Screening every 3 yrs 12/09/1999 Colorectal Cancer:CT Colonog tiera Screening every 5 yrs 12/09/1999 Zoster/Shingles Vaccine Seri es Screening: Adults aged 18+ yrs (or HM Modifiers)([facility]) (1 of 2) 2004 Pneumococcal Vaccination Scr eening: Patients 50+ yrs of age ([facility]) (2 of 2 - PCV) 09/04/2014 09/04/2013 DTaP/Tdap/Td Vaccines ([facility]) (2 - Td or Tdap) 09/04/2013 Flu Vaccination: Ages 65+: Y early High Dose Recommended (or Modifier)([facility]) 11/10/2023 COVID-19 Vaccine Screening: Initial Series and Booster Status ([facility]) ( - 2023- season) 2023 RSV Vaccines (1 - 1-dose 75+ series) 2029 [employer] Not on file Insurance [facility] BCBS - MEDICARE Care Teams Devulcanizer Operator Relationship Specialty Start Date End Date Alexis Chris MD [address] [place] [phone] PCP - Global Compensation Director 07/26/17
== END 2024-07-13 13:09 | disposition home or self-care (01) ==
LOC: HO.HNS 11:30
PROVIDERS: PCP Internal Medicine; Visit Provider Physician Assistant
DX: M48.061 Spinal stenosis, lumbar region without neurogenic claudication (principal)
CPT/HCPCS: 99024

== ENCOUNTER → 2024-07-13 11:30 | Outpatient (BNVA) | payer MEDICARE, SELFPAY | PROVIDERS: PCP Internal Medicine; Visit Provider Physician Assistant | DX: M48.061 Spinal stenosis, lumbar region without neurogenic claudication (principal) | CPT/HCPCS: 99212 ==